=== PATIENT | female | born 1985 | race Caucasian/White ===

== ENCOUNTER 2018-04-04 18:44 | Emergency (ER) | payer OTHER ==
[2018-04-04 19:03] VITALS: BP 114/66; PULSE 88; TEMP 98.6; BMI 60.5
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
== END 2018-04-04 22:43 | disposition home or self-care (01) ==
LOC: JERFT 18:44
DX: S09.90XA Unspecified injury of head, initial encounter (principal); S16.1XXA Strain of muscle, fascia and tendon at neck level, initial encounter; X58.XXXA Exposure to other specified factors, initial encounter; Y93.9 Activity, unspecified; Y92.9 Unspecified place or not applicable; S39.012A Strain of muscle, fascia and tendon of lower back, initial encounter; Z87.891 Personal history of nicotine dependence; J45.909 Unspecified asthma, uncomplicated
CPT/HCPCS: 70450-TC; 72125-TC; 84703; 99281-25

== ENCOUNTER 2019-03-13 17:39 | Emergency (ER) | payer OTHER ==
[2019-03-13 17:47] VITALS: BP 127/57; PULSE 103; TEMP 97.6; BMI 60.5
[2019-03-13] MEDS ORDERED: DEXAMETHASONE LIQUID 0.5 MG/5 ML 240 ML BULK BOTTLE PO ONE (18:32)
--- NOTE | 2019-03-13 18:34 | PDOC ---
History of Present Illness - General Chief Complaint: Respiratory Stated Complaint: REF. BY DOCTOR,R/O PNEUMONIA Time Seen by Provider: 03/13/19 18:28 - History of Present Illness Initial Comments: 03/13/19 18:33 34-year-old female with a past medical history significant for asthma presents for evaluation of cough and shortness of breath 3 days. Seen by her primary care physician she was given a prescription for amoxicillin and 3 tablets of unknown strength prednisone presents for worsening symptoms. Past History - Past Medical History Allergies/Adverse Reactions: Allergies Allergy/AdvReac Type Severity Reaction Status Date / Time hepatitis B virus vaccine Allergy Verified 04/04/18 18:58 HEP B VACCINE Allergy Swelling Uncoded 04/04/18 18:58 Home Medications: Ambulatory Orders Albuterol 0.083% Nebulizer Mary [Ventolin 0.083% Nebulizer Soln -] 1 neb NEB Q4H PRN #20 vial 03/13/19 Amoxicillin - [Amoxicillin 500mg Capsule -] 500 mg PO BID 03/13/19 Azithromycin Ivpb [Zithromax 500Mg Ivpb (Pre-Docked)] 250 mg IVPB DAILY #6 vial 03/13/19 Prednisone [Deltasone] 20 mg PO TID 03/13/19 Anemia: No Asthma: Yes Cancer: No Cardiac Disorders: No CVA: No COPD: No CHF: No Dementia: No Diabetes: No GI Disorders: No Disorders: No HTN: No Hypercholesterolemia: No Liver Disease: No Seizures: No Thyroid Disease: No - Surgical History Abdominal Surgery: No Appendectomy: No Cardiac Surgery: No Cholecystectomy: No Lung Surgery: No Neurologic Surgery: No Orthopedic Surgery: No - Immunization History Immunization Up to Date: Yes - Suicide/Smoking/Psychosocial Hx Smoking Status: No Smoking History: Current every day smoker Have you smoked in the past 12 months: Yes Number of Cigarettes Smoked Daily: 0 If you are a former smoker, when did you quit?: 15 YRS AGO Information on smoking cessation initiated: No Hx Alcohol Use: No Drug/Substance Use Hx: No Substance Use Type: None Hx Substance Use Treatment: No Review of Systems - Review of Systems Constitutional: Yes: Chills, Malaise, Night Sweats Respiratory: Yes: Cough, Shortness of Breath, Wheezing *Physical Exam - Vital Signs Last Vital Signs Temp Pulse Resp BP Pulse Ox 97.6 F 103 H 16 127/57 L 96 03/13/19 17:44 03/13/19 17:44 03/13/19 17:44 03/13/19 17:44 03/13/19 17:44 - Physical Exam Comments: 03/13/19 18:33 HEAD: NC/AT EYES: Conjuntiva clear Ears: Canals and TM's normal NOSE: No d/c THROAT: Moist mucous membrances, oral pharanx clear, uvula midline NECK: Supple without adenopathy CARDIAC: S1 S2 LUNGS: Diffuse wheezing ABDOMEN: Soft NT ND MS: Full ROM in all joints without edema NEUROLOGIC: No gross sensory or motor deficits, NVID SKIN: Normal color and temperature no lesions or rashes ED Treatment Course - RADIOLOGY Radiology Studies Ordered: Category Date Time Status CHEST PA & LAT [RAD] Stat Radiology 03/13/19 18:32 Ordered Medical Decision Making - Medical Decision Making 03/13/19 19:45 Cleared after 3 nebulizer treatments, will change Amoxicillin to Zithromax and write her for neb treatments at home. F/U w PCP in 1-2 days CXR negative for pneumonia *DC/Admit/Observation/Transfer Diagnosis at time of Disposition: Asthmatic bronchitis - Discharge Dispostion Disposition: HOME Condition at time of disposition: Improved Decision to Admit order: No - Referrals Referrals: Rex Field MD [Primary Care Provider] - - Patient Instructions Printed Discharge Instructions: Acute Bronchitis, DI for Acute Bronchitis Additional Instructions: Discontinue the amoxicillin. You will given a dose of a long-acting steroid in the emergency room which will help heal did not next several days do not require any more steroids at home. Please take the Zithromax as directed return to the emergency room for worsening symptoms and follow-up with your primary care physician in one to 2 days for further evaluation and treatment options. Please use the albuterol solution every 6 hours as needed for cough and shortness of breath in the meantime. - Post Discharge Activity
[2019-03-13] MEDS ORDERED: DEXAMETHASONE SOD PHOSPHATE 10 MG/1 ML VIAL ONE (18:38)
[2019-03-13] MEDS ORDERED: ALBUTEROL SO4 2.5/IPRATROPIUM 0.5 INH SOL 3 ML VIAL.NEB. NEB ONE (18:38)
[2019-03-13] MEDS: ALBUTEROL SO4 2.5/IPRATROPIUM 0.5 INH SOL 3 ML VIAL.NEB. NEB SCH ×4 (18:51→19:36)
== END 2019-03-13 19:53 | disposition home or self-care (01) ==
LOC: JER 17:39 → JERFT 17:39
PROC: 3E0F7GC Introduction of Other Therapeutic Substance into Respiratory Tract, Via Natural or Artificial Opening (ICD-10-PCS; principal; 2019-03-13)
DX: J45.998 Other asthma (principal)
CPT/HCPCS: 71046-TC-FY; 94640; 99281-25

== ENCOUNTER 2019-08-09 16:33 | Emergency (ER) | payer OTHER ==
[2019-08-09 16:43] VITALS: TEMP 98.2; BMI 72.7
--- NOTE | 2019-08-09 16:50 | PDOC ---
Rapid Medical Evaluation Chief Complaint: Back Pain Time Seen by Provider: 08/09/19 16:39 Medical Evaluation: Allergies Allergy/AdvReac Type Severity Reaction Status Date / Time hepatitis B virus vaccine Allergy Verified 04/04/18 18:58 HEP B VACCINE Allergy Swelling Uncoded 04/04/18 18:58 08/09/19 16:39 Pt presents to the ER for lower back pain shooting down her L leg. She states that she had an MRI done in April that showed bulging discs Exam: Moderate distress, cannot sit d/t pain, unable to fully evaluate Orders: Deferred to provider Pt to proceed to ER for further evaluation Discharge Disposition - Diagnosis Back pain Qualifiers: Back pain location: low back pain Chronicity: acute Back pain laterality: left Sciatica presence: with sciatica Sciatica laterality: sciatica of left side Qualified Code(s): M54.42 - Lumbago with sciatica, left side - Referrals Referrals: Rex Field MD [Primary Care Provider] - - Patient Instructions - Post Discharge Activity
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
[2019-08-09] MEDS ORDERED: KETOROLAC TROMETHAMINE 60 MG/2 ML VIAL IM ONE (18:26)
[2019-08-09] MEDS ORDERED: CYCLOBENZAPRINE HCL 10 MG TABLET (FP) PO ONE (18:30)
[2019-08-09] MEDS ORDERED: KETOROLAC TROMETHAMINE 60 MG/2 ML VIAL ONE (18:36)
[2019-08-09] MEDS ORDERED: CYCLOBENZAPRINE HCL 10 MG TABLET (FP) ONE (18:36)
[2019-08-09] MEDS ORDERED: diphenhydrAMINE HCL 25 MG CAPSULE (FP) PO ONE ×2 (18:40→18:45)
[2019-08-09 20:45] VITALS: BP 150/85; PULSE 107
== END 2019-08-09 20:40 | disposition home or self-care (01) ==
LOC: JER 16:33
PROC: 3E0233Z Introduction of Anti-inflammatory into Muscle, Percutaneous Approach (ICD-10-PCS; principal; 2019-08-09)
DX: M54.42 Lumbago with sciatica, left side (principal); E66.01 Morbid (severe) obesity due to excess calories; Z68.45 Body mass index [BMI] 70 or greater, adult
CPT/HCPCS: 99283-25

== ENCOUNTER 2024-02-16 20:06 | Emergency (ER) | payer OTHER ==
[2024-02-16 20:35] VITALS: BP 114/75; PULSE 76; RESP 18; TEMP 98.4; BMI 58.9
== END 2024-02-16 21:00 | disposition home or self-care (01) ==
LOC: FER 20:06
DX: M79.672 Pain in left foot (principal); W10.9XXA Fall (on) (from) unspecified stairs and steps, initial encounter; Y93.01 Activity, walking, marching and hiking
CPT/HCPCS: 73610-TC-LT-FY; 73630-TC-LT; 99283-25

== ENCOUNTER 2024-05-31 20:19 | Emergency (ER) | payer OTHER ==
[2024-05-31 20:29] VITALS: BP 145/48; PULSE 85; RESP 20; TEMP 98.3; BMI 59.5
[2024-05-31] MEDS ORDERED: KETOROLAC TROMETHAMINE 60 MG/2 ML VIAL ONE (20:42)
[2024-05-31] MEDS: KETOROLAC TROMETHAMINE 60 MG/2 ML VIAL IM ONE (20:45)
== END 2024-05-31 22:23 | disposition home or self-care (01) ==
LOC: FER 20:19
PROC: 3E0233Z Introduction of Anti-inflammatory into Muscle, Percutaneous Approach (ICD-10-PCS; principal; 2024-05-31)
DX: S13.4XXA Sprain of ligaments of cervical spine, initial encounter (principal); R20.0 Anesthesia of skin; M54.12 Radiculopathy, cervical region; V89.2XXA Person injured in unspecified motor-vehicle accident, traffic, initial encounter; Y92.410 Unspecified street and highway as the place of occurrence of the external cause
CPT/HCPCS: 72050-TC-FY; 72125-TC; 99284-25

== ENCOUNTER 2024-07-19 10:08 | Emergency (ER) | payer OTHER ==
[2024-07-19 10:17] VITALS: BP 137/68; PULSE 90; RESP 16; TEMP 98.8; BMI 56.6
[2024-07-19] MEDS ORDERED: guaiFENesin/D-METHORPHAN HB 10 ML UNIT-DOSE CUPS ONE (10:34)
[2024-07-19] MEDS ORDERED: ALBUTEROL SO4 2.5/IPRATROPIUM 0.5 INH SOL 3 ML VIAL.NEB. NEB ONE ×2 (10:34→10:47)
[2024-07-19] MEDS: ALBUTEROL SO4 2.5/IPRATROPIUM 0.5 INH SOL 3 ML VIAL.NEB. NEB ONE ×2 (10:45→11:00)
[2024-07-19] MEDS: guaiFENesin 200 MG/10 ML 10 ML UNIT-DOSE CUPS PO ONE (10:54)
== END 2024-07-19 11:45 | disposition home or self-care (01) ==
LOC: FER 10:08
PROC: 3E0F7GC Introduction of Other Therapeutic Substance into Respiratory Tract, Via Natural or Artificial Opening (ICD-10-PCS; principal; 2024-07-19)
PROC: 3E0F7GC Introduction of Other Therapeutic Substance into Respiratory Tract, Via Natural or Artificial Opening (ICD-10-PCS; 2024-07-19)
DX: J40 Bronchitis, not specified as acute or chronic (principal); J06.9 Acute upper respiratory infection, unspecified; R05.9 Cough, unspecified; R07.89 Other chest pain; J02.9 Acute pharyngitis, unspecified; R06.02 Shortness of breath; Z20.822 Contact with and (suspected) exposure to COVID-19
CPT/HCPCS: 0241U-QW; 71045-TC-FY; 87651; 94640; 99284-25

== ENCOUNTER 2024-07-24 15:57 | Emergency (ER) | payer OTHER ==
[2024-07-24 16:34] VITALS: BP 97/59; PULSE 90; RESP 16; TEMP 98.1; BMI 56.1
[2024-07-24] MEDS ORDERED: ALBUTEROL SO4 2.5/IPRATROPIUM 0.5 INH SOL 3 ML VIAL.NEB. NEB ONE ×3 (16:57→18:35)
[2024-07-24] MEDS: ALBUTEROL SO4 2.5/IPRATROPIUM 0.5 INH SOL 3 ML VIAL.NEB. NEB SCH ×2 (17:17→18:39)
[2024-07-24] MEDS: SODIUM CHLORIDE 0.9% 500 ML INFUS.BAG IV ONE (17:18)
[2024-07-24] MEDS: ALBUTEROL SO4 2.5/IPRATROPIUM 0.5 INH SOL 3 ML VIAL.NEB. NEB ONE (17:18)
[2024-07-24] MEDS: METOCLOPRAMIDE HCL INJECTION 10 MG/2 ML VIAL IVPB ONE (17:20)
[2024-07-24] MEDS: ACETAMINOPHEN 1000 MG/100 ML BAG IVPB ONE (17:20)
[2024-07-24] MEDS ORDERED: methylPREDNISolone NA SUCC 125 MG/2 ML VIAL ONE (17:22)
[2024-07-24] MEDS: methylPREDNISolone NA SUCC 125 MG/2 ML VIAL IVPB ONE (17:28)
[2024-07-24 17:50] LABS: ALBUMIN 4.1 g/dl (3.4-5.0); BILIRUBIN,TOTAL 0.4 mg/dl (0.2-1); CALCIUM 9.3 mg/dl (8.5-10.1); CREATININE 0.7 mg/dl (0.6-1.3); MAGNESIUM 2.2 mg/dL (1.8-2.4); POTASSIUM 4.3 mmol/L (3.5-5.1); TOT PROT 7.6 g/dl (6.4-8.2)
[2024-07-24 17:54] LABS: HEMATOCRIT 43.2 % (32.4-45.2); HEMOGLOBIN 13.9 G/dL (10.7-15.3); MCH 28.2 pg (25.7-33.7); MCHC 32.1 g/dl (32.0-36.0); MEAN CELL VOLUME 87.9 fl (80-96); MEAN PLT VOLUME 7.6 fl (7.5-11.1); PLATELET COUNT 316.2 10^3/uL (134-434); RBC 4.92 10^6/uL (3.60-5.2); RDW 14.1 % (11.6-15.6); WHITE BLOOD COUNT 10.7 10^3/uL (4.0-10.8)
[2024-07-24 18:21] LABS: THROAT:GRP A STREP NOT DETECTED (NOTDETECTED)
[2024-07-24 18:26] LABS: PLATELET ESTIMATE ADEQUATE; TEAR DROP CELLS 1+
[2024-07-24] MEDS ORDERED: AZITHROMYCIN 500 MG TABLET ONE (18:34)
[2024-07-24] MEDS: AZITHROMYCIN 500 MG TABLET PO ONE (18:39)
== END 2024-07-24 20:50 | disposition home or self-care (01) ==
LOC: FER 15:57
PROC: 3E033GC Introduction of Other Therapeutic Substance into Peripheral Vein, Percutaneous Approach (ICD-10-PCS; principal; 2024-07-24)
PROC: 3E0F7GC Introduction of Other Therapeutic Substance into Respiratory Tract, Via Natural or Artificial Opening (ICD-10-PCS; 2024-07-24)
PROC: 3E0F7GC Introduction of Other Therapeutic Substance into Respiratory Tract, Via Natural or Artificial Opening (ICD-10-PCS; 2024-07-24)
DX: R06.02 Shortness of breath (principal); R05.9 Cough, unspecified; R11.2 Nausea with vomiting, unspecified; Z20.822 Contact with and (suspected) exposure to COVID-19
CPT/HCPCS: 0241U-QW; 36415; 71046-TC-FY; 80053; 83735; 85027; 87651; 94640; 96374; 99284-25